=== PATIENT | female | born 1975 | race Caucasian/White ===

== ENCOUNTER 2016-07-12 14:00 | Emergency (ER) | payer OTHER ==
--- NOTE | 2016-07-12 15:45 | EDPHY ---
H & P Smoking Status: Former smoker Time Seen by Provider: 07/12/16 15:15 HPI/ROS: CHIEF COMPLAINT: Left knee injury HISTORY OF PRESENT ILLNESS: 40-year-old female presents to the emergency department by private vehicle complaining of ongoing pain in her left knee. The patient fell off of a ladder at her own home 3 days ago injuring her left knee. She presents now with swelling and bruising is concerned because the pain is getting worse. Patient has a history of complex regional pain syndrome and takes oxycodone as well as other medications chronically. She denies hitting her head or losing consciousness. Denies any other trauma or injury. She is able to ambulate but does cause pain in her left knee. ROS: Denies numbness or tingling in her toes, pain in her left ankle or hip. ( Simona Izaguirre) Past Medical/Surgical History: Complex regional pain syndrome, chronic pain (EstefaniaSimona portillo) Social History: Single and lives in [place] (EstefaniaSimona portillo) Physical Exam: Examination left knee reveals some mild swelling and diffuse ecchymosis to the anterior aspect of left knee. She has full flexion and extension of her left knee without difficulty. She has diffuse pain with palpation to the left knee. There is no obvious ligament instability. Her left calf is nontender. Right calf is nontender. Full range of motion of her ankles. She is mentating normally and answering questions appropriately. (Lyly Izaguirrecarlito Haywood) Constitutional: Initial Vital Signs Temperature (C) 37.3 C 07/12/16 14:00 Heart Rate 93 07/12/16 14:00 Respiratory Rate 18 07/12/16 14:00 Blood Pressure 168/101 H 07/12/16 14:00 O2 Sat (%) 96 07/12/16 14:00 O2 Delivery Mode Room Air Allergies/Adverse Reactions: No Known Allergies Allergy (Verified 04/16/15 14:06) Home Medications: Medication Instructions Recorded Diclofenac Sodium [Voltaren Gel 1 ravi TP BID 08/04/15 (*)] Polyethylene Glycol 3350 [Miralax 17 gm PO DAILY 08/04/15 17 gm (*)] oxyCODONE IR [Oxycodone Ir (*)] 30 mg PO ,08/04/15 oxyCODONE IR [Oxycodone Ir (*)] 30 mg PO Q4 PRN #0 tab 08/05/15 Clonidine 0.1 mg PO BID 03/20/16 Methadone 5 mg (*) 5 mg PO DAILY 03/20/16 MDM/Departure - MDM Diagnostics: X-rays of the left knee and tib-fib were negative for fracture. This is reviewed by myself the PAC system as well as by the radiologist. (Simona Izaguirre) Procedures: Patient was placed in straight leg knee immobilizer and examined post application in good placement with normal [employer] COUNSELOR. (Simona Izaguirre) ED Course/Re-evaluation: 40-year-old female presents to the emergency department with left knee pain after she fell off of a ladder. X-rays of the left knee and tib-fib were negative for fracture. Patient has a history of complex regional pain syndrome as well as chronic pain. She takes oxycodone chronically. She is requesting a prescription for Ativan because she states this helps her relax and helps more for her pain. The [place] prescription drug monitoring program was consulted and the patient has a primary care provider in [place] who prescribes clonazepam 1 mg tablets number 60 which were dispensed on July 04, 2016. I do not feel comfortable prescribing additional benzodiazepines to this patient. I explained this to the patient and encouraged her to have close follow-up with primary care provider. She was also given orthopedic referral. (Simona Izaguirre) This patient was primary evaluated and managed by the physician magistrate assistant. I have reviewed the chart and agree with the documentation. I am the secondary supervising physician. (Veda Monique) - Depart Disposition: Home, Routine, Self-Care Clinical Impression: Contusion of left knee Condition: Good Instructions: Contusion in Adults (ED) Additional Instructions: Knee immobilizer for comfort and support. Weightbear as tolerated. Ibuprofen 600 mg every 8 hours as needed for pain. Follow up with orthopedic surgeon next week. Referrals: Kun Lieberman MD [Medical Doctor] - 5-7 days, call for appt. (Orthopedist on- call)
[2016-07-12 16:13] VITALS: BP 148/100; PULSE 90; RESP 15; TEMP 98.8; O2SAT 95
== END 2016-07-12 16:13 | disposition home or self-care (01) ==
PROC: 2W3MX1Z Immobilization of Left Lower Extremity using Splint (ICD-10-PCS; principal; 2016-07-12)
DX: S80.02XA Contusion of left knee, initial encounter (principal); Z87.891 Personal history of nicotine dependence; W11.XXXA Fall on and from ladder, initial encounter
CPT/HCPCS: 73564; 73590; 99283; L1830

== ENCOUNTER 2017-01-28 16:02 | Emergency (ER) | payer OTHER ==
[2017-01-28] MEDS ORDERED: ONDANSETRON 4 MG/2 ML VIAL IVP ONE (16:35)
[2017-01-28] MEDS ORDERED: NS 1,000 ML IV ONE (16:35)
[2017-01-28] MEDS ORDERED: HYDROmorphONE/DILAUDID 1 MG/ML INJ IVP ONE (16:35)
--- NOTE | 2017-01-28 16:41 | EDPHY ---
H & P Stated Complaint: Pain under R breast increases w/palp;radiates to back Time Seen by Provider: 01/28/17 16:20 HPI/ROS: CHIEF COMPLAINT: Right upper abdominal pain HISTORY OF PRESENT ILLNESS: The patient is a 41-year-old female with a history of complex regional pain syndrome on chronic narcotics who comes to the emergency department complaining of right upper quadrant pain that began yesterday. She denies shortness of breath. Pain does radiate to her back. She occasionally has it radiate to her sternum as well. She has not had a fever. No tachycardia. Nausea but no vomiting. She has not been able to eat since it began. No diaphoresis. No lightheadedness or weakness. REVIEW OF SYSTEMS: Constitutional: denies: chills, fever, recent illness, recent injury EENTM: denies: blurred vision, double vision, nose congestion Respiratory: denies: cough, shortness of breath Cardiac: See HPI Gastrointestinal/Abdominal: See HPI Genitourinary: denies: dysuria, frequency, hematuria, pain Musculoskeletal: denies: joint pain, muscle pain Skin: denies: lesions, rash, jaundice, bruising Neurological: denies: headache, numbness, paresthesia, tingling, dizziness, weakness Hematologic/Lymphatic: denies: blood clots, easy bleeding, easy bruising Immunologic/allergic: denies: HIV/AIDS, transplant EXAM: GENERAL: Well-appearing, well-nourished and in no acute distress. HEAD: Atraumatic, normocephalic. EYES: Pupils equal round and reactive to light, extraocular movements intact, sclera anicteric, conjunctiva are normal. ENT: TMs normal, nares patent, oropharynx clear without exudates. Moist mucous membranes. NECK: Normal range of motion, supple without lymphadenopathy or JVD. LUNGS: Breath sounds clear to auscultation bilaterally and equal. No wheezes rales or rhonchi. HEART: Regular rate and rhythm without murmurs, rubs or gallops. ABDOMEN: Right upper quadrant tenderness, positive Solomon sign BACK: No CVA tenderness, no spinal tenderness, step-offs or deformities EXTREMITIES: Normal range of motion, no pitting or edema. No clubbing or cyanosis. NEUROLOGICAL: Cranial nerves II through XII grossly intact. Normal speech, normal gait. 5/5 strength, normal movement in all extremities, normal sensation PSYCH: Normal mood, normal affect. SKIN: Warm, dry, normal turgor, no visible rashes or lesions. Source: Patient Exam Limitations: No limitations - Personal History LMP (Females 10-55): Now Current Tetanus Diphtheria and Acellular Pertussis (TDAP): Yes - Medical/Surgical History Hx Asthma: No Hx Chronic Respiratory Disease: No Hx Diabetes: No Hx Cardiac Disease: No Hx Renal Disease: No Hx Cirrhosis: No Hx Alcoholism: No Hx HIV/AIDS: No Hx Splenectomy or Spleen Trauma: No Other PMH: ORTHO CHRONIC PAIN, APPY 2003;CRPS; RT WRIST SURGERIES X7, CRPS - Family History Significant Family History: No pertinent family hx - Social History Smoking Status: Former smoker Alcohol Use: None Constitutional: Initial Vital Signs Temperature (C) 36.8 C 01/28/17 16:05 Heart Rate 75 01/28/17 16:05 Respiratory Rate 18 01/28/17 16:05 Blood Pressure 160/86 H 01/28/17 16:05 O2 Sat (%) 97 01/28/17 16:05 O2 Delivery Mode Room Air Allergies/Adverse Reactions: No Known Allergies Allergy (Verified 01/28/17 16:03) Home Medications: Medication Instructions Recorded oxyCODONE IR [Oxycodone Ir (*)] 30 mg PO Q4 PRN #0 tab 08/05/15 Clonidine 0.1 mg PO BID 03/20/16 Diclofenac Sodium 1% [Voltaren Gel 1 ravi TP 01/28/17 (*)] Lisinopril [Zestril 10 mg (*)] 10 mg PO 01/28/17 Medical Decision Making - Diagnostics EKG Interpretation: An EKG obtained and was read and documented in trace view. Please see trace view for full reading and report. Sinus rhythm, no acute ischemic changes Imaging Results: Imaging Impressions Abdomen Ultrasound 01/28/17 16:38 Impression: The tail of the pancreas is not well visualized secondary to overlying bowel gas. Otherwise, unremarkable right upper quadrant ultrasound. Results called and discussed with José Rodriguez M.D., on January 28, 2017 at 1750. ED Course/Re-evaluation: 6:05 p.m. the patient is currently asymptomatic. We reviewed her testing which is reassuring. Troponin is negative in the face of 24 hours worth of symptoms. Her abdominal exam is now benign. She is eager to go home. I did offer further observation but she declines. She does not have any shortness of breath or pleuritic pain or tachycardia etc. No leg pain or swelling. I advised her to return if her symptoms worsen or return. Differential Diagnosis: Partial list of the Differential diagnosis considered include but were not limited to; biliary disease, chronic regional pain, anxiety and although unlikely based on the history and physical exam, I also considered acute coronary disease, PE, pneumonia, obstruction, ischemia. I discussed these differential diagnoses and the plan with the patient as well as the usual and expected course. The patient understands that the diagnosis is provisional and that in medicine we are not always correct and that further workup is often warranted. Usual and customary warnings were given. All of the patient's questions were answered. The patient was instructed to return to the emergency department should the symptoms at all worsen or return, otherwise to followup with the physician as we discussed. - Data Points Laboratory Results: Laboratory Results 01/28/17 16:40 01/28/17 16:40 Medications Given: Discontinued Medications Hydromorphone HCl (Dilaudid) 1 mg IVP EDNOW ONE Stop: 01/28/17 16:36 Last Admin: 01/28/17 16:45 Dose: 1 mg Sodium Chloride (Ns) 1,000 mls @ 0 mls/hr IV EDNOW ONE; Wide Open PRN Reason: Protocol Stop: 01/28/17 16:36 Last Admin: 01/28/17 16:45 Dose: 1,000 mls Ondansetron HCl (Zofran) 4 mg IVP EDNOW ONE Stop: 01/28/17 16:36 Last Admin: 01/28/17 16:45 Dose: 4 mg Departure - Departure Disposition: Home, Routine, Self-Care Clinical Impression: Right upper quadrant abdominal pain Condition: Fair Instructions: Acute Abdominal Pain (ED) Referrals: Blaise Noguera MD [Primary Care Provider] - As per Instructions
--- NOTE | 2017-01-28 16:46 | CPEKG ---
Heart Rate: 54 RR Interval: 1111 P-R Interval: 140 QRSD Interval: 84 QT Interval: 444 QTC Interval: 421 P [place]: 38 QRS [place]: 12 T Wave [place]: 55 EKG Severity - NORMAL ECG - EKG Impression: SINUS RHYTHM Electronically Signed By: José Rodriguez 28-Jan-2017 16:57:48
[2017-01-28 16:53] LABS: % IMMATURE GRANULYOCYTES 0.6 % (0.0-1.1); ABSOLUTE IMMATURE GRANULOCYTES 0.06 10^3/uL (0.00-0.10); ADD DIFF? NO; ADD MORPH? NO; ADD SCAN? NO; ATYPICAL LYMPHOCYTE FLAG 10 (0-99); FRAGMENT RBC FLAG 0 (0-99); HEMATOCRIT 47.9 % (38.0-47.0); HEMOGLOBIN 16.4 g/dL (12.6-16.3); LEFT SHIFT FLG 0 (0-99); LIPEMIA HEMOLYSIS FLAG 90 (0-99); MEAN CELL HEMOGLOBIN CONCENTR. 34.2 g/dL (32.4-36.7); MEAN CELL VOLUME 93.4 fL (81.5-99.8); MEAN PLATELET VOLUME 10.4 fL (8.7-11.7); PLATELET CLUMPS FLAG 0 (0-99); PLATELET COUNT 369 10^3/uL (150-400); RED BLOOD CELL COUNT 5.13 10^6/uL (4.18-5.33); RED CELL DISTRIBUTION WIDTH 12.9 % (11.5-15.2)
[2017-01-28 17:14] LABS: ALANINE AMINOTRANSFERASE 42 IU/L (9-52); ALBUMIN 5.1 g/dL (3.5-5.0); ALKALINE PHOSPHATASE 148 IU/L (38-126); ANION GAP 16 mEq/L (8-16); ASPARTATE AMINOTRANSFERASE 26 IU/L (14-46); BILIRUBIN,TOTAL 0.6 mg/dL (0.1-1.4); BILIRUBIN-CONJUGATED 0.4 mg/dL (0.0-0.5); BILIRUBIN-UNCONJUGATED 0.2 mg/dL (0.0-1.1); CALCIUM 10.5 mg/dL (8.5-10.4); CARBON DIOXIDE 21 mEq/l (22-31); CHLORIDE 105 mEq/L (97-110); CREATININE 0.7 mg/dL (0.6-1.0); GLOMERULAR FILTRATION RATE > 60; GLUCOSE 76 mg/dL (70-100); POTASSIUM 3.6 mEq/L (3.5-5.2); SODIUM 142 mEq/L (134-144); TOTAL PROTEIN 8.3 g/dL (6.3-8.2)
[2017-01-28 17:25] LABS: TROPONIN I < 0.012 ng/mL (0.000-0.034)
[2017-01-28 18:17] VITALS: PULSE 56; RESP 16; O2SAT 95
[2017-01-28 18:18] VITALS: BP 160/85; TEMP 97.7
== END 2017-01-28 18:18 | disposition home or self-care (01) ==
PROC: 3E0337Z Introduction of Electrolytic and Water Balance Substance into Peripheral Vein, Percutaneous Approach (ICD-10-PCS; principal; 2017-01-28)
DX: R10.11 Right upper quadrant pain (principal); E86.9 Volume depletion, unspecified; Z87.891 Personal history of nicotine dependence
CPT/HCPCS: 76705; 93005; 96361; 96374; 96375; 99285; J1170; J2405

== ENCOUNTER → 2017-02-10 | Outpatient (CLI) | payer OTHER | LOC: BHFA 11:30 | PROVIDERS: ATTEND Internal Medicine Cardiovascular Disease | DX: R07.9 Chest pain, unspecified (principal); I10 Essential (primary) hypertension ==

== ENCOUNTER → 2017-06-22 | Outpatient (CLI) | payer OTHER | LOC: SBRMNEURO 21:00 | PROVIDERS: ATTEND Psychiatry & Neurology Sleep Medicine | DX: G47.33 Obstructive sleep apnea (adult) (pediatric) (principal) ==

== ENCOUNTER 2017-07-10 11:45 | Emergency (ER) | payer OTHER ==
[2017-07-10 12:09] VITALS: RESP 18; TEMP 98.4
--- NOTE | 2017-07-10 13:20 | EDPHY ---
H & P Stated Complaint: pt fell on thurs pain to right arm, wrist and ankle - Personal History LMP (Females 10-55): 1-7 Days Ago Current Tetanus Diphtheria and Acellular Pertussis (TDAP): Unsure - Medical/Surgical History Hx Asthma: No Hx Chronic Respiratory Disease: No Hx Diabetes: No Hx Cardiac Disease: No Hx Renal Disease: No Hx Cirrhosis: No Hx Alcoholism: No Hx HIV/AIDS: No Hx Splenectomy or Spleen Trauma: No Other PMH: ORTHO CHRONIC PAIN, APPY 2003;CRPS; RT WRIST SURGERIES X7, CRPS - Social History Smoking Status: Former smoker Time Seen by Provider: 07/10/17 13:02 HPI/ROS: CHIEF COMPLAINT: Right elbow, wrist, knee, ankle pain post slip and fall HISTORY OF PRESENT ILLNESS: 41-year-old female history of complex regional pain syndrome states that 3 days ago she slipped and fell on the ice injuring her right ankle, right knee, right foot, right wrist, right elbow. History of chronic opiate dependence, Percocet 10 mg twice daily for her CRPS. Complaining of breakthrough pain. No paresthesia. No head injury. Reproducible pain to all aforementioned locations with palpation and range of motion. REVIEW OF SYSTEMS: A ten point review of systems was performed and is negative with the exception of the items mentioned in the HPI PAST MEDICAL/SURGICAL HISTORY: no anticoagulant use, complex regional pain syndrome SOCIAL HISTORY: Nonsmoker PHYSICAL EXAM 1) GENERAL: Well-developed, well-nourished, alert and oriented. Appears uncomfortable. Answering questions appropriately. 2) HEAD: Normocephalic, atraumatic 3) HEENT: Pupils equal, round, reactive to light bilaterally.. 4) NECK: No cervical collar is on. Posterior cervical spine is nontender, no stepoff, no effusion. Full range of motion which does not elicit any midline cervical spine pain, no posterior midline tenderness, no step-off. 5) LUNGS: Clear to auscultation bilaterally, no wheezes, no rhonchi, no retractions. No obvious signs of trauma. No chest wall pain. No flaring, no grunting. Moving symmetrically. No crepitus. 6) HEART: [Regular rate and rhythm, 7) ABDOMEN: No guarding, no rebound, no focal tenderness, no peritoneal signs, no signs of trauma, no ecchymosis 8) MUSCULOSKELETAL: Right upper extremity: Tender to palpation right elbow with no visible signs of trauma. No crepitus. Humerus nontender. Forearm nontender. Distal radius is tender to palpation. No anatomic snuffbox pain. Radial ulnar median nerve function intact. Brisk pulses. Brisk capillary refill. Soft compartments Right lower extremity: Tender to palpation right inferolateral knee. No visible signs of trauma. Soft compartments No crepitus. Intact skin. Tender to palpation right lateral ankle. No crepitus. 5th metatarsal tender to palpation. otherwise, Moving all extremities, no focal areas of tenderness, no obvious trauma. 9) BACK: No midline vertebral tenderness, no fluctuance, no step-off, no obvious trauma, no visual or palpable abnormality. 10) SKIN: No laceration. No abrasion DIFFERENTIAL DIAGNOSIS: In no particular order including but limited to fracture, sprain, strain, compartment syndrome (Trevor,Lucrecia Carroll) Constitutional: Initial Vital Signs Temperature (C) 36.9 C 07/10/17 12:06 Heart Rate 86 07/10/17 12:06 Respiratory Rate 18 07/10/17 12:06 Blood Pressure 142/100 H 07/10/17 12:06 O2 Sat (%) 97 07/10/17 12:06 O2 Delivery Mode Room Air Allergies/Adverse Reactions: No Known Allergies Allergy (Verified 01/28/17 16:03) Home Medications: Medication Instructions Recorded Diclofenac Sodium 1% [Voltaren Gel 1 ravi TP 01/28/17 (*)] Lisinopril [Zestril 10 mg (*)] 10 mg PO 01/28/17 Calcium Channel [place] 07/10/17 HYDROmorphone HCL [Dilaudid 2 mg 2 mg PO Q6 PRN #10 tab 07/10/17 (RX)] Ibuprofen 07/10/17 Percocet 10-325 mg Tablet 07/10/17 Vicodin Hp 10-300 mg Tablet 07/10/17 Medical Decision Making - Diagnostics Imaging Results: Imaging Impressions Ankle X-Ray 07/10/17 13:36 Impression: There is no acute osseous abnormality. Right Forearm (AP and Lateral Views, at 1:48 PM): Again, there is evidence for prior arthrodesis of the radius to the scaphoid and lunate, with osseous truncation and remodeling of the distal lateral aspect of the ulna, with some mild persistent widening of the radioulnar space. There are some stable punctate of metallic opacities over the distal radial and ulnar soft tissues, and a teardrop-shaped ossification near the distal ulnar metadiaphyseal junction. The more proximal aspects of the radius and ulna appear intact. Impression: Old postsurgical-post traumatic changes to the distal radius and ulna, with no acute abnormality. Right Wrist (4 Views, at 1:50 PM): Again noted is prior arthrodesis of the radiocarpal joint with old postsurgical/posttraumatic changes to the distal ulna with unchanged widening of the radial-ulnar joint space. There are some subchondral geodes associated with the distal navicular, and there is some degenerative change of the distal lateral intercarpal row. There is no acute osseous abnormality identified. On the lateral view, there are a couple of well- corticated ossific densities seen palmarly. Impression: Old postoperative/posttraumatic changes, similar to 2013, with no acute superimposed process identified. Right Ankle Series, 3 Views, at 1:43 PM: The osseous structures are intact, without an acute fracture. The ankle mortise is maintained, and the talar dome has a normal contour. The soft tissues are unremarkable, with no ankle joint effusion. There is a prominent plantar calcaneal enthesophyte. Impression: No acute osseous abnormality. Right Foot, 3 Views, at 1:44 PM: Bone mineralization is preserved. There is no acute fracture or dislocation. There is no periosteal reaction or marginal erosion. There is no radiopaque foreign body. The joint spaces have a normal thickness. A plantar calcaneal enthesophyte is seen, and there is pes planus. There is mild degenerative change of the great toe metatarsophalangeal joint. Impression: No acute osseous abnormality. Elbow X-Ray 07/10/17 13:36 Impression: There is no acute osseous abnormality. Right Forearm (AP and Lateral Views, at 1:48 PM): Again, there is evidence for prior arthrodesis of the radius to the scaphoid and lunate, with osseous truncation and remodeling of the distal lateral aspect of the ulna, with some mild persistent widening of the radioulnar space. There are some stable punctate of metallic opacities over the distal radial and ulnar soft tissues, and a teardrop-shaped ossification near the distal ulnar metadiaphyseal junction. The more proximal aspects of the radius and ulna appear intact. Impression: Old postsurgical-post traumatic changes to the distal radius and ulna, with no acute abnormality. Right Wrist (4 Views, at 1:50 PM): Again noted is prior arthrodesis of the radiocarpal joint with old postsurgical/posttraumatic changes to the distal ulna with unchanged widening of the radial-ulnar joint space. There are some subchondral geodes associated with the distal navicular, and there is some degenerative change of the distal lateral intercarpal row. There is no acute osseous abnormality identified. On the lateral view, there are a couple of well- corticated ossific densities seen palmarly. Impression: Old postoperative/posttraumatic changes, similar to 2013, with no acute superimposed process identified. Right Ankle Series, 3 Views, at 1:43 PM: The osseous structures are intact, without an acute fracture. The ankle mortise is maintained, and the talar dome has a normal contour. The soft tissues are unremarkable, with no ankle joint effusion. There is a prominent plantar calcaneal enthesophyte. Impression: No acute osseous abnormality. Right Foot, 3 Views, at 1:44 PM: Bone mineralization is preserved. There is no acute fracture or dislocation. There is no periosteal reaction or marginal erosion. There is no radiopaque foreign body. The joint spaces have a normal thickness. A plantar calcaneal enthesophyte is seen, and there is pes planus. There is mild degenerative change of the great toe metatarsophalangeal joint. Impression: No acute osseous abnormality. Foot X-Ray 07/10/17 13:36 Impression: There is no acute osseous abnormality. Right Forearm (AP and Lateral Views, at 1:48 PM): Again, there is evidence for prior arthrodesis of the radius to the scaphoid and lunate, with osseous truncation and remodeling of the distal lateral aspect of the ulna, with some mild persistent widening of the radioulnar space. There are some stable punctate of metallic opacities over the distal radial and ulnar soft tissues, and a teardrop-shaped ossification near the distal ulnar metadiaphyseal junction. The more proximal aspects of the radius and ulna appear intact. Impression: Old postsurgical-post traumatic changes to the distal radius and ulna, with no acute abnormality. Right Wrist (4 Views, at 1:50 PM): Again noted is prior arthrodesis of the radiocarpal joint with old postsurgical/posttraumatic changes to the distal ulna with unchanged widening of the radial-ulnar joint space. There are some subchondral geodes associated with the distal navicular, and there is some degenerative change of the distal lateral intercarpal row. There is no acute osseous abnormality identified. On the lateral view, there are a couple of well- corticated ossific densities seen palmarly. Impression: Old postoperative/posttraumatic changes, similar to 2013, with no acute superimposed process identified. Right Ankle Series, 3 Views, at 1:43 PM: The osseous structures are intact, without an acute fracture. The ankle mortise is maintained, and the talar dome has a normal contour. The soft tissues are unremarkable, with no ankle joint effusion. There is a prominent plantar calcaneal enthesophyte. Impression: No acute osseous abnormality. Right Foot, 3 Views, at 1:44 PM: Bone mineralization is preserved. There is no acute fracture or dislocation. There is no periosteal reaction or marginal erosion. There is no radiopaque foreign body. The joint spaces have a normal thickness. A plantar calcaneal enthesophyte is seen, and there is pes planus. There is mild degenerative change of the great toe metatarsophalangeal joint. Impression: No acute osseous abnormality. Forearm X-Ray 07/10/17 13:36 Impression: There is no acute osseous abnormality. Right Forearm (AP and Lateral Views, at 1:48 PM): Again, there is evidence for prior arthrodesis of the radius to the scaphoid and lunate, with osseous truncation and remodeling of the distal lateral aspect of the ulna, with some mild persistent widening of the radioulnar space. There are some stable punctate of metallic opacities over the distal radial and ulnar soft tissues, and a teardrop-shaped ossification near the distal ulnar metadiaphyseal junction. The more proximal aspects of the radius and ulna appear intact. Impression: Old postsurgical-post traumatic changes to the distal radius and ulna, with no acute abnormality. Right Wrist (4 Views, at 1:50 PM): Again noted is prior arthrodesis of the radiocarpal joint with old postsurgical/posttraumatic changes to the distal ulna with unchanged widening of the radial-ulnar joint space. There are some subchondral geodes associated with the distal navicular, and there is some degenerative change of the distal lateral intercarpal row. There is no acute osseous abnormality identified. On the lateral view, there are a couple of well- corticated ossific densities seen palmarly. Impression: Old postoperative/posttraumatic changes, similar to 2013, with no acute superimposed process identified. Right Ankle Series, 3 Views, at 1:43 PM: The osseous structures are intact, without an acute fracture. The ankle mortise is maintained, and the talar dome has a normal contour. The soft tissues are unremarkable, with no ankle joint effusion. There is a prominent plantar calcaneal enthesophyte. Impression: No acute osseous abnormality. Right Foot, 3 Views, at 1:44 PM: Bone mineralization is preserved. There is no acute fracture or dislocation. There is no periosteal reaction or marginal erosion. There is no radiopaque foreign body. The joint spaces have a normal thickness. A plantar calcaneal enthesophyte is seen, and there is pes planus. There is mild degenerative change of the great toe metatarsophalangeal joint. Impression: No acute osseous abnormality. Wrist X-Ray 07/10/17 13:36 Impression: There is no acute osseous abnormality. Right Forearm (AP and Lateral Views, at 1:48 PM): Again, there is evidence for prior arthrodesis of the radius to the scaphoid and lunate, with osseous truncation and remodeling of the distal lateral aspect of the ulna, with some mild persistent widening of the radioulnar space. There are some stable punctate of metallic opacities over the distal radial and ulnar soft tissues, and a teardrop-shaped ossification near the distal ulnar metadiaphyseal junction. The more proximal aspects of the radius and ulna appear intact. Impression: Old postsurgical-post traumatic changes to the distal radius and ulna, with no acute abnormality. Right Wrist (4 Views, at 1:50 PM): Again noted is prior arthrodesis of the radiocarpal joint with old postsurgical/posttraumatic changes to the distal ulna with unchanged widening of the radial-ulnar joint space. There are some subchondral geodes associated with the distal navicular, and there is some degenerative change of the distal lateral intercarpal row. There is no acute osseous abnormality identified. On the lateral view, there are a couple of well- corticated ossific densities seen palmarly. Impression: Old postoperative/posttraumatic changes, similar to 2013, with no acute superimposed process identified. Right Ankle Series, 3 Views, at 1:43 PM: The osseous structures are intact, without an acute fracture. The ankle mortise is maintained, and the talar dome has a normal contour. The soft tissues are unremarkable, with no ankle joint effusion. There is a prominent plantar calcaneal enthesophyte. Impression: No acute osseous abnormality. Right Foot, 3 Views, at 1:44 PM: Bone mineralization is preserved. There is no acute fracture or dislocation. There is no periosteal reaction or marginal erosion. There is no radiopaque foreign body. The joint spaces have a normal thickness. A plantar calcaneal enthesophyte is seen, and there is pes planus. There is mild degenerative change of the great toe metatarsophalangeal joint. Impression: No acute osseous abnormality. Knee X-Ray 07/10/17 15:53 Impression: Normal. If there is progression of the patient's symptoms, MR imaging could be considered. Images reviewed myself (Lucrecia Murray) Procedures: Procedure: Splint 1 An upper extremity sling was applied by ER automotive tire technician. After application of the splint I returned and re-examined the patient. The splint was adequately immobilizing the joint and distal to the splint the patient's circulation and sensation were intact. Patient shows no signs of compartment syndrome. Was given orthopedic precautions. Procedure: Splint 2 A Velcro volar splint splint was applied by ER automotive tire technician. After application of the splint I returned and re-examined the patient. The splint was adequately immobilizing the joint and distal to the splint the patient's circulation and sensation were intact. Patient shows no signs of compartment syndrome. Was given orthopedic precautions. Procedure: Splint 3 A Renato boot was applied by ER automotive tire technician. After application of the splint I returned and re-examined the patient. The splint was adequately immobilizing the joint and distal to the splint the patient's circulation and sensation were intact. Patient shows no signs of compartment syndrome. Was given orthopedic precautions. (Lucrecia Murray) ED Course/Re-evaluation: Patient was re-evaluated with serial examinations. I discussed her imaging results showing no definitive acute osseous abnormality. I discussed limitations of plain x-rays, informed that soft tissue injury has not been ruled out. She has no evidence of compartment syndrome on initial or repeat examinations. Plan will be discharged with splints, orthopedic referral follow- up information recommendation, given prescription for Dilaudid tablets that she has a history of opiate dependence secondary to her complex regional pain syndrome. She feels comfortable being discharged. Care of patient under supervision of secondary supervising physician Dr Monique . (Lucrecia Murray) Other Provider: The patient was evaluated and managed by the physician post production assistant. I have reviewed this chart and I agree with the findings and plan of care as documented , as indicated by my signature. I am the secondary supervising physician. ( Veda Monique) Departure - Departure Disposition: Home, Routine, Self-Care Clinical Impression: Fall from slipping on ice Qualifiers: Encounter type: initial encounter Qualified Code(s): W00.9XXA - Unspecified fall due to ice and snow, initial encounter Sprain of right elbow Qualifiers: Encounter type: initial encounter Qualified Code(s): S53.401A - Unspecified sprain of right elbow, initial encounter Sprain of right wrist Qualifiers: Encounter type: initial encounter Qualified Code(s): S63.501A - Unspecified sprain of right wrist, initial encounter Right ankle sprain Qualifiers: Encounter type: initial encounter Involved ligament of ankle: other ligament Qualified Code(s): S93.491A - Sprain of other ligament of right ankle, initial encounter Condition: Good Instructions: Hydromorphone (By mouth), Knee Sprain (ED), Foot Sprain (ED), Wrist Sprain (ED) Additional Instructions: Return to the ER immediately if you experience discoloration, have worsening pain, numbness, tingling, or any other symptoms that concern you. If you received x-rays in the emergency department today, be advised, that ligamentous , tendon, muscular, and other non-bony injury cannot be fully ruled out. Try to keep your affected extremity elevated above the level of your chest, and keep cold packs on the affected area, for the next 48 hours. Referrals: Kun Lieberman MD [Medical Doctor] - 2-3 days, call for appt. (Dr Lieberman is an orthopedic surgeon) Prescriptions: HYDROmorphone HCL [Dilaudid 2 mg (RX)] 2 mg PO Q6 PRN #10 tab PRN Reason: Pain, Severe
[2017-07-10 16:30] VITALS: BP 155/109; PULSE 78; O2SAT 96
== END 2017-07-10 16:29 | disposition home or self-care (01) ==
DX: S53.401A Unspecified sprain of right elbow, initial encounter (principal); S63.501A Unspecified sprain of right wrist, initial encounter; S43.491A Other sprain of right shoulder joint, initial encounter; Z87.891 Personal history of nicotine dependence; W00.9XXA Unspecified fall due to ice and snow, initial encounter
CPT/HCPCS: 73080; 73090; 73110; 73564; 73610; 73630; 99284; A4565; L3908; L4386